=== PATIENT | female | born 1985 | race American Indian/Alaskan Native ===

== ENCOUNTER 2017-10-23 13:54 | Emergency (ER) | payer SELFPAY ==
[2017-10-23 15:29] VITALS: BP 129/76
== END 2017-10-23 16:23 | disposition left against medical advice (07) ==
LOC: ED 13:54
DX: L29.9 Pruritus, unspecified (principal); Z53.21 Procedure and treatment not carried out due to patient leaving prior to being seen by health care provider

== ENCOUNTER 2021-12-27 01:33 | Emergency (ER) | payer SELFPAY ==
[2021-12-27] MEDS ORDERED: SODIUM CHLORIDE 0.9% 1000 ML 1,000 ML IV ONE ×2 (08:31→10:44)
[2021-12-27 09:22] LABS: Basophils % (Auto) 0.5 % (0.0-1.8); Eosinophils # (Auto) 0.2 K/mm3 (0.0-0.4); Eosinophils % (Auto) 2.1 % (0.0-4.3); Hematocrit 28.8 % (30.3-42.9); Hemoglobin 9.2 gm/dl (10.1-14.3); Lymphocytes # (Auto) 1.9 K/mm3 (1.2-5.4); Lymphocytes % (Auto) 23.7 % (13.4-35.0); Mean Corpuscular HGB Conc 32 % (30-34); Mean Corpuscular Volume 88 fl (79-97); Monocytes % (Auto) 12.3 % (0.0-7.3); Platelet Count 389 K/mm3 (140-440); Red Blood Count 3.28 M/mm3 (3.65-5.03); Red Cell Distribution Width 18.3 % (13.2-15.2)
[2021-12-27 09:42] LABS: Alanine Aminotransferase 12 units/L (7-56); Albumin 3.5 g/dL (3.9-5); Blood Urea Nitrogen 14 mg/dL (7-17); Calcium 8.3 mg/dL (8.4-10.2); Hemolysis Index 8
[2021-12-27 09:54] LABS: BUN/Creatinine Ratio 23
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
[2021-12-27] MEDS ORDERED: IBUPROFEN 800 MG TAB PO ONE (12:56)
[2021-12-27] MEDS ORDERED: CYCLOBENZAPRINE 10 MG TAB PO ONE (12:56)
[2021-12-27] MEDS ORDERED: oxyCODONE /ACETAMINOPHEN 5-325MG TAB PO ONE (12:56)
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
[2021-12-27 15:17] VITALS: BP 138/86
== END 2021-12-27 15:18 | disposition home or self-care (01) ==
LOC: ED 01:33
DX: S20.229A Contusion of unspecified back wall of thorax, initial encounter (principal); S20.219A Contusion of unspecified front wall of thorax, initial encounter; M79.18 Myalgia, other site; F17.200 Nicotine dependence, unspecified, uncomplicated; R51.9 Headache, unspecified; R10.9 Unspecified abdominal pain; Z98.890 Other specified postprocedural states; V87.7XXA Person injured in collision between other specified motor vehicles (traffic), initial encounter; Y93.89 Activity, other specified; Y92.488 Other paved roadways as the place of occurrence of the external cause; Y99.8 Other external cause status
CPT/HCPCS: 36415; 70450; 71250; 72125; 72131; 74176; 80053; 82550; 84484; 84703; 85025; 96360; 96361; 99284; J7030

== ENCOUNTER 2022-01-03 12:00 | Emergency (ER) | payer SELFPAY ==
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
--- NOTE | 2022-01-03 14:31 | XRay Report ---
LEFT KNEE 3 VIEWS INDICATION / CLINICAL INFORMATION: Left knee injury, pain, swelling. COMPARISON: None available. FINDINGS: BONES and JOINT(S): There is an acute intercondylar tibial eminence fracture with extension medially and laterally along the tibial plateau. No dislocation. No significant arthritis. SOFT TISSUES: A small joint effusion is present. No other significant abnormality. ADDITIONAL FINDINGS: None. IMPRESSION: Acute left tibial fracture as above. Signer Name: Kevin Leone MD Signed: 01/03/2022 2:27 PM Workstation Name: [id number]
[2022-01-03 16:57] VITALS: BP 131/80
== END 2022-01-03 19:00 | disposition home or self-care (01) ==
LOC: ED 12:00
DX: S82.102A Unspecified fracture of upper end of left tibia, initial encounter for closed fracture (principal); F17.200 Nicotine dependence, unspecified, uncomplicated; X58.XXXA Exposure to other specified factors, initial encounter; Y93.89 Activity, other specified; Y92.89 Other specified places as the place of occurrence of the external cause; Y99.8 Other external cause status
CPT/HCPCS: 99283; 99284

== ENCOUNTER 2022-01-03 21:37 | Emergency (ER) | payer SELFPAY ==
[2022-01-04] MEDS ORDERED: ONDANSETRON 4 MG ODT TAB PO ONE (00:34)
[2022-01-04] MEDS ORDERED: IBUPROFEN 600 MG TAB PO ONE (00:34)
[2022-01-04] MEDS ORDERED: oxyCODONE /ACETAMINOPHEN 5-325MG TAB PO ONE (00:34)
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
[2022-01-04 02:22] VITALS: BP 172/92
== END 2022-01-04 02:22 | disposition home or self-care (01) ==
LOC: ED 21:37
DX: S82.252G Displaced comminuted fracture of shaft of left tibia, subsequent encounter for closed fracture with delayed healing (principal); Y08.89XD Assault by other specified means, subsequent encounter
CPT/HCPCS: 99283; J3490; Q0162

== ENCOUNTER 2022-01-04 14:11 | Emergency (ER) | payer SELFPAY ==
[2022-01-04] MEDS ORDERED: IBUPROFEN 800 MG TAB PO ONE (15:12)
[2022-01-04] MEDS ORDERED: oxyCODONE /ACETAMINOPHEN 5-325MG TAB PO ONE (15:12)
[2022-01-04] MEDS ORDERED: CYCLOBENZAPRINE 10 MG TAB PO ONE (15:12)
[2022-01-04 15:13] VITALS: BP 150/106
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
== END 2022-01-04 16:40 | disposition home or self-care (01) ==
LOC: ED 14:11
DX: R56.9 Unspecified convulsions (principal)
CPT/HCPCS: 99282

== ENCOUNTER 2022-01-05 09:11 | Emergency (ER) | payer SELFPAY ==
[2022-01-05 16:11] LABS: Alanine Aminotransferase 10 units/L (7-56); Blood Urea Nitrogen 7 mg/dL (7-17); Hemolysis Index 3
[2022-01-05 16:14] LABS: BUN/Creatinine Ratio 12
[2022-01-05 17:06] LABS: Basophils % (Auto) 0.5 % (0.0-1.8); Eosinophils # (Auto) 0.1 K/mm3 (0.0-0.4); Hematocrit 29.9 % (30.3-42.9); Hemoglobin 9.8 gm/dl (10.1-14.3); Lymphocytes # (Auto) 1.6 K/mm3 (1.2-5.4); Lymphocytes % (Auto) 16.6 % (13.4-35.0); Mean Corpuscular HGB Conc 33 % (30-34); Mean Corpuscular Volume 86 fl (79-97); Monocytes # (Auto) 1.1 K/mm3 (0.0-0.8); Platelet Count 352 K/mm3 (140-440); Red Blood Count 3.46 M/mm3 (3.65-5.03); Red Cell Distribution Width 17.5 % (13.2-15.2)
[2022-01-05 18:32] LABS: Benzodiazepines Screen,Urine Negative; Cannabinoid Screen,Urine Negative; Methadone Screen,Urine Negative; Opiate Screen,Urine Negative
[2022-01-05 18:45] LABS: Amphetamine Screen,Urine Positive; Cocaine Screen,Urine Positive
[2022-01-05] MEDS ORDERED: POTASSIUM CHLORIDE ER 20 MEQ TAB PO ONE (19:23)
[2022-01-05] MEDS ORDERED: KETOROLAC 30 MG/1 ML INJ IM ONE (19:53)
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
[2022-01-05] MEDS ORDERED: cloNIDine 0.2 MG TAB PO ONE (20:16)
[2022-01-05 20:44] VITALS: BP 167/106
== END 2022-01-05 22:03 | disposition home or self-care (01) ==
LOC: ED 09:11
DX: M79.18 Myalgia, other site (principal); F19.10 Other psychoactive substance abuse, uncomplicated; Z13.30 Encounter for screening examination for mental health and behavioral disorders, unspecified; I10 Essential (primary) hypertension; F17.200 Nicotine dependence, unspecified, uncomplicated; F10.20 Alcohol dependence, uncomplicated; F12.90 Cannabis use, unspecified, uncomplicated
CPT/HCPCS: 36415; 80053; 80307; 85025; 96372; 99283; J1885; 80320; G0480

== ENCOUNTER 2022-01-06 08:39 | Emergency (ER) | payer SELFPAY ==
[2022-01-06 08:46] VITALS: BP 114/77
--- NOTE | 2022-01-06 11:10 | XRay Report ---
Left tibia-fibula, 4 views HISTORY: Fracture COMPARISON: 01/03/2022. FINDINGS: Left tibial plateau fracture demonstrates stable alignment. There is depressed component at the lateral condyle with nondisplaced involvement of the intercondylar eminence and central portion of the medial tibial plateau, better seen on prior knee radiographs. No new fracture. Soft tissue swe lling remains involving the superficial infrapatellar soft tissues with stranding of Hoffa's fat pad. Small suprapatellar joint effusion is stable. IMPRESSION: Stable alignment of left tibial plateau fracture, as above. No new skeletal abnormality. Signer Name: Kenneth Tan MD Signed: 01/06/2022 11:06 AM Workstation Name: [email or web address]
[2022-01-06] MEDS ORDERED: oxyCODONE /ACETAMINOPHEN 5-325MG TAB PO ONE (12:02)
[2022-01-06] MEDS ORDERED: predniSONE 20 MG TAB PO ONE (12:02)
[2022-01-06] MEDS ORDERED: KETOROLAC 10 MG TAB PO ONE (12:02)
--- NOTE | 2022-01-06 12:10 | Emergency Department Report ---
ED Extremity Problem HPI - General Chief complaint: Extremity Injury, Lower Stated complaint: LEG PAIN SWELLING Time Seen by Provider: 01/06/22 10:27 Source: patient Mode of arrival: Ambulatory Limitations: Physical Limitation - History of Present Illness Initial comments: 36 yo black female presents to ed for evaluation of left left pain. Patient was diagnosed with tibial plateau fracture, placed in splint and advised to follow up with orthopedics. She states that she has not been able to follow up with orthopedics and is having increased pain and swelling to left leg and foot. She denies any new injury. MD Complaint: extremity pain, extremity swelling -: Gradual, week(s) Location: left, lower extremity History of Same: Yes -: No myalgia, No arthralgia, No fever, No associated dyspnea, No associated chest pain Radiation: none Severity scale (0 -10): 8 Associated Symptoms: denies: chest pain, shortness of breath, fever, myalgias, arthralgias, rash - Related Data Previous Rx's Medication Instructions Recorded Last Taken Type Naproxen 500 mg PO Q12H PRN #12 tab 01/03/22 Unknown Rx Lisinopril [Zestril] 5 mg PO DAILY 30 Days #30 tab-cap 01/05/22 Unknown Rx Acetaminophen/Codeine [Tylenol 1 tab PO Q6H PRN #12 tab 01/06/22 Unknown Rx /Codeine # 3 tab] Ketorolac [Toradol] 10 mg PO Q6H PRN #12 tab 01/06/22 Unknown Rx Allergies Allergy/AdvReac Type Severity Reaction Status Date / Time No Known Allergies Allergy Verified 01/06/22 08:46 ED Review of Systems ROS: Stated complaint: LEG PAIN SWELLING Other details as noted in HPI Comment: All other systems reviewed and negative Constitutional: denies: chills, fever ENT: denies: congestion Respiratory: denies: shortness of breath Cardiovascular: denies: chest pain, palpitations Gastrointestinal: denies: abdominal pain, nausea, vomiting Musculoskeletal: denies: back pain Neurological: denies: headache, weakness ED Past Medical Hx - Surgical History Additional Surgical History: - Social History Smoking Status: Current Every Day Smoker Substance Use Type: Alcohol, Cocaine (Last use 3 days ago) - Medications Home Medications: Home Medications Medication Instructions Recorded Confirmed Last Taken Type Naproxen 500 mg PO Q12H PRN #12 tab 01/03/22 01/09/22 Unknown Rx Lisinopril [Zestril] 5 mg PO DAILY 30 Days #30 tab-cap 01/05/22 01/09/22 Unknown Rx Acetaminophen/Codeine [Tylenol 1 tab PO Q6H PRN #12 tab 01/06/22 01/09/22 Unknown Rx /Codeine # 3 tab] Ketorolac [Toradol] 10 mg PO Q6H PRN #12 tab 01/06/22 01/09/22 Unknown Rx ED Physical Exam - General Limitations: Physical Limitation General appearance: alert, in no apparent distress - Head Head exam: Present: atraumatic, normocephalic - Eye Eye exam: Present: normal appearance. Absent: conjunctival injection - Neck Neck exam: Present: normal inspection - Respiratory Respiratory exam: Present: normal lung sounds bilaterally. Absent: respiratory distress, wheezes, rales, rhonchi, stridor - Cardiovascular Cardiovascular Exam: Present: regular rate, normal heart sounds - GI/Abdominal GI/Abdominal exam: Present: soft, normal bowel sounds. Absent: distended, tenderness - Extremities Exam Extremities exam: Absent: normal inspection (temporary splint partially in place) - Expanded Lower Extremity Exam Left Lower Leg exam: Present: tenderness, swelling Ankle exam: Present: tenderness, swelling Foot/Toe exam: Present: tenderness, swelling Neuro vascular tendon exam: Present: no vascular compromise. Absent: pulse deficit, abnormal cap refill, motor deficit, sensory deficit, extremity cold to touch, pallor Gait: Positive: unable to bear weight - Back Exam Back exam: Present: normal inspection - Neurological Exam Neurological exam: Present: alert, oriented X3 - Psychiatric Psychiatric exam: Present: normal affect, normal mood - Skin Skin exam: Present: warm, dry, intact, normal color ED Course Vital Signs 01/06/22 08:44 Temperature 98.1 F Pulse Rate 94 H Blood Pressure 114/77 [Right] O2 Sat by Pulse 99 Oximetry - Orthopedic Splinting/Casting Injury #1 Lower Extremity Injury Location: knee Lower Extremity Immobilizer: posterior splint Additional Comments: CMS intact after placement and patient tolerated well. ED Medical Decision Making - Medical Decision Making 36 yo black female presents to ed for evaluation of left left pain. Patient was diagnosed with tibial plateau fracture, placed in splint and advised to follow up with orthopedics. She states that she has not been able to follow up with orthopedics and is having increased pain and swelling to left leg and foot. She denies any new injury. Patient placed in new long leg posterior splint and given toradol and percocet for pain and swelling. She was discharged home with toradol and tylenol #3 and advised to follow up with orthopedics as previously prescribed. He is advised to return to ed as needed. He verbalized understanding of and agreement with plan of care. Critical care attestation.: If time is entered above; I have spent that time in minutes in the direct care of this critically ill patient, excluding procedure time. ED Disposition Clinical Impression: Tibial plateau fracture, left Disposition: HOME / SELF CARE / HOMELESS Is pt being admited?: No Does the pt Need Aspirin: No Condition: Stable Instructions: Cast or Splint Care, Adult, [id number], Tibial Fracture, Adult, [id number], Tibial Plateau Fracture Rehab-SportsMed, Nondisplaced Tibial Plateau Fracture Additional Instructions: Take medications as prescribed. Follow up with orthopedics for further evaluation and management. Prescriptions: Ketorolac [Toradol] 10 mg PO Q6H PRN #12 tab PRN Reason: Pain Acetaminophen/Codeine [Tylenol /Codeine # 3 tab] 1 tab PO Q6H PRN #12 tab PRN Reason: Pain , Severe (7-10) Referrals: YO HIGHTOWER MD [Staff Physician] - 3-5 Days MEETA SORIANO MD [Staff Physician] - 3-5 Days HAIR HAWK MD [Staff Physician] - 3-5 Days STACIA JIMENEZ MD [Staff Physician] - 3-5 Days Time of Disposition: 12:10
== END 2022-01-06 19:26 | disposition home or self-care (01) ==
LOC: ED 08:39
DX: S82.145D Nondisplaced bicondylar fracture of left tibia, subsequent encounter for closed fracture with routine healing (principal); F17.200 Nicotine dependence, unspecified, uncomplicated; F14.90 Cocaine use, unspecified, uncomplicated; Z72.89 Other problems related to lifestyle; Z79.899 Other long term (current) drug therapy; X58.XXXD Exposure to other specified factors, subsequent encounter
CPT/HCPCS: 99283

== ENCOUNTER 2022-01-08 19:16 | Observation (INO) | payer SELFPAY ==
[2022-01-08] MEDS ORDERED: HYDROcodone/ACETAMINOPHEN 7.5-325MG TAB PO ONE (21:13)
[2022-01-09] MEDS ORDERED: MORPHINE 4 MG/1 ML INJ IV ONE (04:11)
[2022-01-09] MEDS ORDERED: ONDANSETRON 4 MG/2 ML INJ IV ONE (04:11)
--- NOTE | 2022-01-09 04:15 | Emergency Department Report ---
ED General Adult HPI - General Chief complaint: Extremity Injury, Lower Stated complaint: KNEE PAIN Time Seen by Provider: 01/09/22 03:58 Source: patient Mode of arrival: Wheelchair Limitations: No Limitations - History of Present Illness Severity scale (0 -10): 10 - Related Data Previous Rx's Medication Instructions Recorded Last Taken Type Naproxen 500 mg PO Q12H PRN #12 tab 01/03/22 Unknown Rx Lisinopril [Zestril] 5 mg PO DAILY 30 Days #30 tab-cap 01/05/22 Unknown Rx Acetaminophen/Codeine [Tylenol 1 tab PO Q6H PRN #12 tab 01/06/22 Unknown Rx /Codeine # 3 tab] Ketorolac [Toradol] 10 mg PO Q6H PRN #12 tab 01/06/22 Unknown Rx Allergies Allergy/AdvReac Type Severity Reaction Status Date / Time No Known Allergies Allergy Verified 01/06/22 08:46 ED Review of Systems ROS: Stated complaint: KNEE PAIN Other details as noted in HPI ED Past Medical Hx - Past Medical History Previous Medical History?: No - Surgical History Past Surgical History?: Yes Additional Surgical History: - Social History Smoking Status: Never Smoker Substance Use Type: None - Medications Home Medications: Home Medications Medication Instructions Recorded Confirmed Last Taken Type Naproxen 500 mg PO Q12H PRN #12 tab 01/03/22 Unknown Rx Lisinopril [Zestril] 5 mg PO DAILY 30 Days #30 tab-cap 01/05/22 Unknown Rx Acetaminophen/Codeine [Tylenol 1 tab PO Q6H PRN #12 tab 01/06/22 Unknown Rx /Codeine # 3 tab] Ketorolac [Toradol] 10 mg PO Q6H PRN #12 tab 01/06/22 Unknown Rx ED Physical Exam - General Limitations: No Limitations ED Course Vital Signs 01/08/22 20:51 Temperature 98.3 F Pulse Rate 98 H Respiratory 18 Rate Blood Pressure 135/93 O2 Sat by Pulse 100 Oximetry Critical care attestation.: If time is entered above; I have spent that time in minutes in the direct care o f this critically ill patient, excluding procedure time. ED Disposition Condition: Stable
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
[2022-01-09 05:06] LABS: Basophils # (Auto) 0.1 K/mm3 (0.0-0.1); Basophils % (Auto) 0.8 % (0.0-1.8); Eosinophils # (Auto) 0.2 K/mm3 (0.0-0.4); Eosinophils % (Auto) 2.3 % (0.0-4.3); Hematocrit 29.7 % (30.3-42.9); Hemoglobin 9.5 gm/dl (10.1-14.3); Lymphocytes # (Auto) 1.8 K/mm3 (1.2-5.4); Lymphocytes % (Auto) 20.5 % (13.4-35.0); Mean Corpuscular HGB Conc 32 % (30-34); Mean Corpuscular Volume 87 fl (79-97); Monocytes % (Auto) 11.8 % (0.0-7.3); Platelet Count 326 K/mm3 (140-440); Red Blood Count 3.41 M/mm3 (3.65-5.03); Red Cell Distribution Width 17.6 % (13.2-15.2)
[2022-01-09 05:15] LABS: INR 0.95 (0.87-1.13)
[2022-01-09 05:16] LABS: Partial Thromboplastin Time 28.9 Sec. (24.2-36.6)
[2022-01-09 05:29] LABS: Alanine Aminotransferase 23 units/L (7-56); Albumin 3.8 g/dL (3.9-5); Blood Urea Nitrogen 11 mg/dL (7-17); Calcium 9.6 mg/dL (8.4-10.2); Hemolysis Index 4
[2022-01-09 05:30] LABS: BUN/Creatinine Ratio 22
[2022-01-09] MEDS ORDERED: SODIUM CHLORIDE 0.9% 1000 ML 1,000 ML IV ONE (05:37)
--- NOTE | 2022-01-09 05:43 | Vascular Lab Report ---
DUPLEX DOPPLER LOWER EXTREMITY VEINS, LEFT INDICATION: Left lower extremity pain and swelling. TECHNIQUE: Duplex doppler imaging was performed through the veins of the left lower extremity using venous compr ession and other maneuvers. COMPARISON: None available. FINDINGS: Common Femoral vein: Negative. Superficial Femoral vein: Negative. Popliteal vein: Negative. Calf veins: Nonocclusive DVT identified within the peroneal and posterior tibial veins. Additional findings: None. IMPRESSION: Nonocclusive thrombus within the peroneal and posterior tibial veins Signer Name: Murray Marcus MD Signed: 01/09/2022 5:38 AM Workstation Name: [email or web address]
[2022-01-09] MEDS ORDERED: fentaNYL 100 MCG/2 ML INJ IV ONE ×2 (06:43→09:02)
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
--- NOTE | 2022-01-09 08:00 | Cat Scan Report ---
CT angio lower extremity left INDICATION / CLINICAL INFORMATION: Left lower extremity pain swelling tib fib fracture. TECHNIQUE: Axial CT images were obtained through the left lower extremity after injection of 100 mL Omnipaque 35 0 IV contrast using CTA protocol. 3 plane MIP / 3D reconstructions were produced. All CT scans at [facility] location are performed using CT dose reduction for ALARA by means of automated exposure control. COMPARISON: None available. FINDINGS: The left common femoral artery and left SFA are patent. The left popliteal artery is patent. There is three-vessel runoff below the left knee. There is moderate subcutaneous edema identified below the l eft knee. No drainable fluid collection is identified. Incidentally, there is some increased prominence involving the superficial veins below the left knee. There is a comminuted tibial plateau fracture involving the medial and lateral tibial plateau. Large lipohemarthrosis identified within the left knee joint. The femur is grossly intact. IMPRESSION: No evidence of arterial occlusion identified within the left lower extremity, as outlined above. Signer Name: Murray Marcus MD Signed: 01/09/2022 7:55 AM Workstation Name: [email or web address]
[2022-01-09] MEDS ORDERED: ONDANSETRON 4 MG/2 ML INJ IV PRN ×2 (11:22→18:57)
[2022-01-09] MEDS ORDERED: ACETAMINOPHEN 325 MG TAB PO PRN ×2 (11:22→18:57)
[2022-01-09] MEDS: MORPHINE 2 MG/1 ML INJ IV PRN ×3 (14:01→20:40)
[2022-01-09] MEDS ORDERED: METOCLOPRAMIDE 10 MG/2 ML INJ IV PRN (18:57)
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
[2022-01-09] MEDS ORDERED: VANCOMYCIN PHARMACY TO DOSE IV SCH (20:00)
[2022-01-09] MEDS: SODIUM CHLORIDE 0.9% 1000 ML 1,000 ML IV SCH (20:41)
[2022-01-09] MEDS: FAMOTIDINE 20 MG TAB PO SCH (21:00)
[2022-01-09] MEDS: AMPICILLIN/SULBACTA 3GM/100ML 3 GM/100 ML BAG IV SCH (21:42)
[2022-01-09] MEDS ORDERED: VANCOMYCIN 1,250 MG in SODIUM CHLORIDE 0.9% 250ML 250 ML IV ONE (22:00)
[2022-01-09] MEDS: ZOLPIDEM 5 MG TAB PO PRN (23:10)
[2022-01-10] MEDS: AMPICILLIN/SULBACTA 3GM/100ML 3 GM/100 ML BAG IV SCH ×4 (01:28→20:07)
[2022-01-10] MEDS: MORPHINE 2 MG/1 ML INJ IV PRN ×3 (05:26→20:06)
[2022-01-10] MEDS: VANCOMYCIN/NS 1 GM/250 ML 1 GM/250 ML BAG IV SCH ×3 (11:16→22:35)
[2022-01-10] MEDS: FAMOTIDINE 20 MG TAB PO SCH ×2 (11:37→22:35)
--- NOTE | 2022-01-10 11:37 | XRay Report ---
LEFT FOOT 2 VIEW(S) INDICATION / CLINICAL INFORMATION: Ecchymosis and swelling of the left foot and ankle COMPARISON: None available. FINDINGS: BONES / JOINT(S): No acute fracture or subluxation. No significant arthritis. SOFT TISSUES: Moderate dorsal soft tissue swelling. ADDITIONAL FINDINGS: None. Signer Name: Erik Silvestre MD Signed: 01/10/2022 11:33 AM Workstation Name: [id number]
--- NOTE | 2022-01-10 11:48 | XRay Report ---
LEFT ANKLE 2 VIEW(S) INDICATION / CLINICAL INFORMATION: Ankle swelling COMPARISON: None available. FINDINGS: BONES / JOINT(S): No acute fracture or subluxation. No significant arthritis. Small inferior calcanea l spur. SOFT TISSUES: Soft tissue swelling without significant joint effusion identified. ADDITIONAL FINDINGS: None. IMPRESSION: 1. Soft tissue swelling surrounding the ankle without fracture or other acute osseous process identif ied. Signer Name: Torey Pritchard MD Signed: 01/10/2022 11:44 AM Workstation Name: [email or web address]
--- NOTE | 2022-01-10 16:24 | Discharge Summary ---
Providers - Providers Date of Admission: 01/09/22 11:23 Attending physician: NICOLE LOVE 01/09/22 06:50 Consult to Physician [CONS] Urgent Comment: Dr. Justice spoke with Dr. Sy @ 0635 Consulting Provider: YO SY Physician Instructions: Reason For Exam: Tibial plateau fracture Primary care physician: [employer] Hospitalization Condition: Stable Exam - Constitutional Vitals: Temp Pulse Resp BP Pulse Ox 98.0 F 86 18 171/117 100 01/10/22 12:13 01/10/22 12:13 01/10/22 12:13 01/10/22 12:13 01/10/22 12:13 Plan Follow up with: PRIMARY CARE, [Primary Care Provider] - 3-5 Days
[2022-01-10 21:14] LABS: Basophils # (Auto) 0.1 K/mm3 (0.0-0.1); Basophils % (Auto) 0.6 % (0.0-1.8); Eosinophils # (Auto) 0.2 K/mm3 (0.0-0.4); Eosinophils % (Auto) 2.7 % (0.0-4.3); Hematocrit 30.4 % (30.3-42.9); Hemoglobin 9.6 gm/dl (10.1-14.3); Lymphocytes # (Auto) 1.4 K/mm3 (1.2-5.4); Lymphocytes % (Auto) 16.9 % (13.4-35.0); Mean Corpuscular HGB Conc 32 % (30-34); Mean Corpuscular Volume 87 fl (79-97); Monocytes # (Auto) 0.9 K/mm3 (0.0-0.8); Monocytes % (Auto) 10.3 % (0.0-7.3); Platelet Count 304 K/mm3 (140-440); Red Blood Count 3.49 M/mm3 (3.65-5.03)
[2022-01-10 21:33] LABS: Alanine Aminotransferase 26 units/L (7-56); Albumin 3.3 g/dL (3.9-5); Blood Urea Nitrogen 6 mg/dL (7-17); Calcium 8.5 mg/dL (8.4-10.2); Hemolysis Index 6
[2022-01-10 21:39] LABS: BUN/Creatinine Ratio 12
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
[2022-01-11] MEDS: MORPHINE 2 MG/1 ML INJ IV PRN ×3 (00:01→09:26)
[2022-01-11] MEDS: ZOLPIDEM 5 MG TAB PO PRN (00:02)
[2022-01-11] MEDS: AMPICILLIN/SULBACTA 3GM/100ML 3 GM/100 ML BAG IV SCH ×3 (00:02→13:25)
[2022-01-11] MEDS: SODIUM CHLORIDE 0.9% 1000 ML 1,000 ML IV SCH (03:08)
[2022-01-11 09:26] VITALS: BP 133/89
[2022-01-11] MEDS: FAMOTIDINE 20 MG TAB PO SCH (09:26)
[2022-01-11] MEDS: VANCOMYCIN/NS 1 GM/250 ML 1 GM/250 ML BAG IV SCH (10:48)
--- NOTE | 2022-01-11 12:31 | Event Note ---
Date: 01/11/22 Patient seen and examined. No new issues overnight. Patient had a discharge order for yesterday but was not executed because patient did not have transportation and medications were not completed with the prescriptions. I discussed with nursing and case management. Patient is for discharge today. Total visit time equals 32 minutes with greater than 50% spent on coordination of care and counseling
== END 2022-01-11 16:29 | disposition home or self-care (01) ==
LOC: ED 19:16 → 3A 01-09 11:23
PROVIDERS: ADMIT Internal Medicine; ATTEND Hospitalist
DX: L03.116 Cellulitis of left lower limb (principal); S82.142A Displaced bicondylar fracture of left tibia, initial encounter for closed fracture; I82.402 Acute embolism and thrombosis of unspecified deep veins of left lower extremity; M62.82 Rhabdomyolysis; F17.200 Nicotine dependence, unspecified, uncomplicated; W50.1XXA Accidental kick by another person, initial encounter; Y93.89 Activity, other specified; Y92.89 Other specified places as the place of occurrence of the external cause
CPT/HCPCS: 36415; 73600; 73620; 73706; 80053; 82140; 82550; 83735; 84702; 85025; 85610; 85730; 93971; 96361; 96365; 96366; 96367; 96376; 99285; G0378; J0295; J2270; J2405; J3010; J3370; J7030; J7050; Q9967; 96375

== ENCOUNTER 2022-01-19 12:26 | Emergency (ER) | payer SELFPAY ==
[2022-01-19] MEDS ORDERED: ONDANSETRON 4 MG ODT TAB PO STA (22:04)
[2022-01-19 22:57] LABS: Basophils # (Auto) 0.1 K/mm3 (0.0-0.1); Basophils % (Auto) 0.9 % (0.0-1.8); Eosinophils # (Auto) 0.1 K/mm3 (0.0-0.4); Eosinophils % (Auto) 2.1 % (0.0-4.3); Hematocrit 30.7 % (30.3-42.9); Hemoglobin 9.6 gm/dl (10.1-14.3); Lymphocytes # (Auto) 1.9 K/mm3 (1.2-5.4); Lymphocytes % (Auto) 26.5 % (13.4-35.0); Mean Corpuscular HGB Conc 31 % (30-34); Mean Corpuscular Volume 86 fl (79-97); Monocytes # (Auto) 0.9 K/mm3 (0.0-0.8); Monocytes % (Auto) 12.7 % (0.0-7.3); Platelet Count 385 K/mm3 (140-440); Red Blood Count 3.55 M/mm3 (3.65-5.03); Red Cell Distribution Width 17.9 % (13.2-15.2)
[2022-01-19 23:09] LABS: Alanine Aminotransferase 11 units/L (7-56); Albumin 3.7 g/dL (3.9-5); Blood Urea Nitrogen 10 mg/dL (7-17); Calcium 8.8 mg/dL (8.4-10.2); Hemolysis Index 12
[2022-01-19 23:14] LABS: BUN/Creatinine Ratio 17
[2022-01-19 23:22] LABS: Color,Urine Yellow (Yellow)
[2022-01-19 23:26] LABS: Mucus,Urine 1+ /HPF
--- NOTE | 2022-01-19 23:53 | Emergency Department Report ---
ED General Adult HPI - General Chief complaint: Back Pain/Injury Stated complaint: BACK,STOMACH,HIP PAIN Time Seen by Provider: 01/19/22 22:04 Source: patient Mode of arrival: Ambulatory Limitations: No Limitations - History of Present Illness Initial comments: 36-year-old female [facility] emergency department complaining of a 2-day history of hip pain back pain nausea abdominal cramping and occasional dizziness associated with a coryza. Reports no hematuria, no dysuria, no chest pain, no palpitation, shortness of breath. -: Gradual Radiation: non-radiation Severity scale (0 -10): 8 Quality: dull Consistency: constant Improves with: none Worsens with: none Associated Symptoms: nausea/vomiting. denies: chest pain, cough, diaphoresis, headaches, loss of appetite, rash, seizure, shortness of breath, syncope, weakness Treatments Prior to Arrival: none - Related Data Previous Rx's Medication Instructions Recorded Last Taken Type Naproxen 500 mg PO Q12H PRN #12 tab 01/03/22 Unknown Rx Lisinopril [Zestril] 5 mg PO DAILY 30 Days #30 tab-cap 01/05/22 Unknown Rx Acetaminophen/Codeine [Tylenol 1 tab PO Q6H PRN #12 tab 01/06/22 Unknown Rx /Codeine # 3 tab] Ketorolac [Toradol] 10 mg PO Q6H PRN #12 tab 01/06/22 Unknown Rx cephALEXin [Keflex] 500 mg PO Q12HR #10 cap 01/10/22 Unknown Rx oxyCODONE /ACETAMINOPHEN [Percocet 1 tab PO Q6HR PRN #20 tablet 01/10/22 Unknown Rx 5/325] Hyoscyamine Subl [Levsin Sl 0.125 0.125 mg SL Q4HR PRN #20 tablet 01/19/22 Un known Rx TAB] Ketorolac [Toradol] 10 mg PO Q6H PRN #20 01/19/22 Unknown Rx Allergies Allergy/AdvReac Type Severity Reaction Status Date / Time No Known Allergies Allergy Verified 01/19/22 13:53 ED Review of Systems ROS: Stated complaint: BACK,STOMACH,HIP PAIN Other details as noted in HPI Comment: All other systems reviewed and negative ED Past Medical Hx - Past Medical History Hx Hypertension: No Hx Heart Attack/AMI: No Hx Congestive Heart Failure: No Hx Diabetes: No Hx Deep Vein Thrombosis: No Hx Pulmonary Embolism: No Hx GERD: No Hx Liver Disease: No Hx Renal Disease: No Hx Sickle Cell Disease: No Hx Arthritis: No Hx Headaches / Migraines: No Hx Seizures: No Hx Kidney Stones: No Hx Asthma: No Hx COPD: No Hx Tuberculosis: No Hx Dementia: No Hx HIV: No - Surgical History Hx Coronary Stent: No Hx Open Heart Surgery: No Hx Pacemaker: No Hx Internal Defibrillator: No Hx Cholecystectomy: No Hx Appendectomy: No Hx Breast Surgery: No Additional Surgical History: - Social History Substance Use Type: None, Alcohol - Medications Home Medications: Home Medications Medication Instructions Recorded Confirmed Last Taken Type Naproxen 500 mg PO Q12H PRN #12 tab 01/03/22 01/09/22 Unknown Rx Lisinopril [Zestril] 5 mg PO DAILY 30 Days #30 tab-cap 01/05/22 01/09/22 Unknown Rx Acetaminophen/Codeine [Tylenol 1 tab PO Q6H PRN #12 tab 01/06/22 01/09/22 U nknown Rx /Codeine # 3 tab] Ketorolac [Toradol] 10 mg PO Q6H PRN #12 tab 01/06/22 01/09/22 Unknown Rx cephALEXin [Keflex] 500 mg PO Q12HR #10 cap 01/10/22 Unknown Rx oxyCODONE /ACETAMINOPHEN [Percocet 1 tab PO Q6HR PRN #20 tablet 01/10/22 Unknown Rx 5/325] Hyoscyamine Subl [Levsin Sl 0.125 0.125 mg SL Q4HR PRN #20 tablet 01/19/22 Unknown Rx TAB] Ketorolac [Toradol] 10 mg PO Q6H PRN #20 01/19/22 Unknown Rx ED Physical Exam - General Limitations: No Limitations General appearance: alert, in no apparent distress - Head Head exam: Present: atraumatic, normocephalic - Eye Eye exam: Present: normal appearance, PERRL, EOMI. Absent: scleral icterus - ENT ENT exam: Present: normal orophraynx, mucous membranes moist - Neck Neck exam: Present: normal inspection - Respiratory Respiratory exam: Present: normal lung sounds bilaterally. Absent: respiratory distress - Cardiovascular Cardiovascular Exam: Present: regular rate, normal rhythm. Absent: systolic murmur, diastolic murmur, rubs, gallop - GI/Abdominal GI/Abdominal exam: Present: soft, normal bowel sounds - Extremities Exam Extremities exam: Present: normal inspection, full ROM, tenderness. Absent: pedal edema - Back Exam Back exam: Present: normal inspection, CVA tenderness (R), CVA tenderness (L) - Neurological Exam Neurological exam: Present: alert, oriented X3, CN II-XII intact, normal gait - Psychiatric Psychiatric exam: Present: normal affect, normal mood - Skin Skin exam: Present: warm, dry, intact, normal color. Absent: rash ED Course Vital Signs 01/19/22 13:52 Temperature 98 F Pulse Rate 91 H Respiratory 20 Rate Blood Pressure 139/88 [Right] O2 Sat by Pulse 98 Oximetry ED Medical Decision Making - Lab Data Result diagrams: 01/19/22 22:23 01/19/22 22:23 Critical care attestation.: If time is entered above; I have spent that time in minutes in the direct care of this critically ill patient, excluding procedure time. ED Disposition Clinical Impression: Abdominal pain, Back pain Disposition: 01 HOME / SELF CARE / HOMELESS Is pt being admited?: No Does the pt Need Aspirin: No Condition: Stable Instructions: Abdominal Pain, Adult, Back Injury Prevention, Chronic Back Pain Prescriptions: Hyoscyamine Subl [Levsin Sl 0.125 TAB] 0.125 mg SL Q4HR PRN #20 tablet PRN Reason: Spasms Ketorolac [Toradol] 10 mg PO Q6H PRN #20 PRN Reason: Pain Referrals: PRIMARY CAREMD [Primary Care Provider] - 3-5 Days RONEY DE LA CRUZ MD [Staff Physician] - 3-5 Days
[2022-01-20 00:16] VITALS: BP 132/84
== END 2022-01-20 00:17 | disposition home or self-care (01) ==
LOC: ED 12:26
DX: R10.9 Unspecified abdominal pain (principal); M54.9 Dorsalgia, unspecified
CPT/HCPCS: 36415; 80053; 81001; 83690; 84703; 85025; 99283; J3490; Q0162